=== PATIENT | male | born 2000 | race Caucasian/White ===

== ENCOUNTER 2020-06-24 13:59 | Outpatient (CLI) | payer BC | END 2020-06-24 14:00 | disposition home or self-care (01) | LOC: EEG 13:59 | PROVIDERS: ATTEND Psychiatry & Neurology Neurology | DX: G40.209 Localization-related (focal) (partial) symptomatic epilepsy and epileptic syndromes with complex partial seizures, not intractable, without status epilepticus (principal) | CPT/HCPCS: 95816 ==